=== PATIENT | female | born 1955 | race Caucasian/White ===

== ENCOUNTER 2022-01-29 12:01 | Outpatient (REF) | payer OTHER, SELFPAY ==
[2022-01-29 13:35] LABS: MANUAL DIFF FLAG NO
[2022-01-29 13:38] LABS: Basophils Absolute Auto 0.1 X10*3/uL (0.0-0.2); Basophils Percent Auto 0.8 % (0-2); Eosinophils Absolute Auto 0.1 X10*3/uL (0.0-0.4); Hematocrit 46.2 % (37.0-47.0); Imm Gran Abs Auto 0.02 X10*3/uL (0.00-0.03); Imm Gran Pct Auto 0.3 % (0.0-0.4); Lymphocytes Percent Auto 27.1 % (20-40); Mean Corpuscular HGB Conc 32.5 g/dl (31.0-35.0); Mean Corpuscular Hemoglobin 28.5 pg (27.0-33.0); Mean Corpuscular Volume 87.8 fL (80.0-98.0); Mean Platelet Volume 11.8 fL (9.4-12.3); Monocytes Absolute Auto 0.5 X10*3/uL (0.1-1.2); Monocytes Percent Auto 6.9 % (2-11); Neutrophils Absolute Auto 4.6 x10*3/uL (2.0-8.3); Neutrophils Percent Auto 63.9 % (45-73); Platelet Count 272 X10*3/uL (160-400); Red Blood Count 5.26 X10*6/uL (4.20-5.50); Red Cell Distribution Width 14.6 % (11.0-16.0); White Blood Count 7.2 X10*3/uL (4.8-10.8)
[2022-01-29 13:50] LABS: Alanine Aminotransferase 14 U/L (0-31); Albumin Level 4.5 g/dL (3.5-5.0); Alkaline Phosphatase 68 U/L (39-117); Anion Gap 12 (12-20); Aspartate Amino Transferase 19 U/L (5-31); Bilirubin Total 0.5 mg/dL (0.0-1.0); Blood Urea Nitrogen 16 mg/dL (9-16); Calcium 8.6 mg/dL (8.4-10.2); Carbon Dioxide 26 mmol/L (22-29); Chloride 104 mmol/L (96-108); Cholesterol 169 mg/dL; Estimated Glomerular Filt Rate 50; Glucose Random 101 mg/dL (60-115); HDL Cholesterol 54 mg/dL; LDL Cholesterol Calculated 97 mg/dl; Potassium 4.9 mmol/L (3.3-5.1); Sodium 137 mmol/L (135-145); Total Protein 6.8 g/dL (6.5-8.0); Triglycerides 91 mg/dL
[2022-01-29 14:06] LABS: Free T4 (Free Thyroxine) 1.19 ng/dL (0.71-1.85); Thyroid Stimulating Hormone 1.95 uIU/mL (0.32-4.0); Vitamin D 25-OH Total 34.1 ng/mL (>30)
== END 2022-01-29 12:02 | disposition home or self-care (01) ==
LOC: HO.10HDL 12:01
PROVIDERS: Visit Provider Internal Medicine
DX: I10 Essential (primary) hypertension (principal); E78.00 Pure hypercholesterolemia, unspecified; E03.9 Hypothyroidism, unspecified; E55.9 Vitamin D deficiency, unspecified
CPT/HCPCS: 36415; 80053; 80061; 82306; 84439; 84443; 85025

== ENCOUNTER 2022-06-18 10:01 | Outpatient (REF) | payer OTHER, SELFPAY ==
[2022-06-18 12:26] LABS: Anion Gap 15 (12-20); Blood Urea Nitrogen 15 mg/dL (9-16); Calcium 9.3 mg/dL (8.4-10.2); Carbon Dioxide 27 mmol/L (22-29); Chloride 102 mmol/L (96-108); Estimated Glomerular Filt Rate 58; Glucose Random 97 mg/dL (60-115); Potassium 4.8 mmol/L (3.3-5.1); Sodium 139 mmol/L (135-145)
[2022-06-18 12:49] LABS: Free T4 (Free Thyroxine) 1.16 ng/dL (0.71-1.85)
== END 2022-06-18 10:02 | disposition home or self-care (01) ==
LOC: HO.10HDL 10:01
PROVIDERS: Visit Provider Internal Medicine
DX: I10 Essential (primary) hypertension (principal); E03.9 Hypothyroidism, unspecified
CPT/HCPCS: 36415; 80048; 84439; 84443

== ENCOUNTER 2023-01-21 08:36 | Outpatient (REF) | payer OTHER, SELFPAY ==
[2023-01-21 11:37] LABS: Anion Gap 14 (12-20); Blood Urea Nitrogen 13 mg/dL (9-16); Calcium 9.5 mg/dL (8.4-10.2); Carbon Dioxide 23 mmol/L (22-29); Chloride 107 mmol/L (96-108); Estimated Glomerular Filt Rate 58; Glucose Random 117 mg/dL (60-115); Potassium 4.3 mmol/L (3.3-5.1); Sodium 140 mmol/L (135-145)
[2023-01-21 11:46] LABS: Free T4 (Free Thyroxine) 1.09 ng/dL (0.71-1.85); Thyroid Stimulating Hormone 2.36 uIU/mL (0.32-4.0)
== END 2023-01-21 08:37 | disposition home or self-care (01) ==
LOC: HO.10HDL 08:36
PROVIDERS: Visit Provider Internal Medicine
DX: I12.9 Hypertensive chronic kidney disease with stage 1 through stage 4 chronic kidney disease, or unspecified chronic kidney disease (principal); N18.9 Chronic kidney disease, unspecified; E03.9 Hypothyroidism, unspecified
CPT/HCPCS: 36415; 80048; 84439; 84443

== ENCOUNTER 2023-03-26 06:31 | Outpatient (REF) | payer OTHER, SELFPAY ==
[2023-03-26 12:05] LABS: Anion Gap 10 (12-20); Blood Urea Nitrogen 19 mg/dL (9-16); Calcium 9.6 mg/dL (8.4-10.2); Carbon Dioxide 28 mmol/L (22-29); Chloride 105 mmol/L (96-108); Cholesterol 157 mg/dL (<200); Estimated Glomerular Filt Rate 57; Glucose Random 109 mg/dL (60-115); HDL Cholesterol 47 mg/dL (>40); LDL Cholesterol Calculated 80 mg/dL (<100); Potassium 4.3 mmol/L (3.3-5.1); Sodium 139 mmol/L (135-145); Triglycerides 154 mg/dL (<150)
== END 2023-03-26 06:32 | disposition home or self-care (01) ==
LOC: HO.HMGCLDS 06:31
PROVIDERS: PCP Internal Medicine; Visit Provider Internal Medicine
DX: I10 Essential (primary) hypertension (principal); E78.00 Pure hypercholesterolemia, unspecified
CPT/HCPCS: 36415; 80048; 80061

== ENCOUNTER 2024-06-11 10:14 | Outpatient (REF) | payer OTHER, SELFPAY ==
--- NOTE | ~2024-06-11 | XR_ITS ---
EXAMINATION: XR KNEE, LEFT CLINICAL INFORMATION: M25.562 - Pain in left knee. COMPARISON: None available. TECHNIQUE: 3 views of the left knee. FINDINGS: Prominent chondrocalcinosis. Medial Compartment: There are marginal osteophytes and subtle concavity in the weightbearing portion of the medial femoral condyle. This concavity likely reflects an area of prior insufficiency fracture or spontaneous osteonecrosis of the knee. Concomitant wzrw-vi-swoggkua osteoarthritis. Lateral Compartment: Marginal osteophytes indicative of mild osteoarthritis. Patellofemoral Compartment: Marginal osteophytes, subchondral cystic change, and nonuniform joint space narrowing indicative of ekuo-bp-tckaoxgr osteoarthritis. No effusion. XR/XR knee LT 3V IMPRESSION: Prominent chondrocalcinosis. Osteoarthritis. Probable old insufficiency fracture/spontaneous osteonecrosis of the knee involving the medial compartment. Electronically signed by: Brady Ford MD 06/17/2024 07:29 AM TALYA
== END 2024-06-11 10:15 | disposition home or self-care (01) ==
LOC: HO.HOSX 10:14
PROVIDERS: Visit Provider Orthopaedic Surgery
DX: M25.562 Pain in left knee (principal); M17.12 Unilateral primary osteoarthritis, left knee
CPT/HCPCS: 20610; 73562; J1010; J2003

== ENCOUNTER 2024-06-11 13:58 | Outpatient (AMB) | payer OTHER, SELFPAY ==
--- NOTE | 2024-06-11 14:30 | A.OFFVIS_ITS ---
Vital Signs 06/11/24 14:32 Height 5 ft 4 in Weight 230 lb BMI 39.5 Intake Visit Reasons: Left knee pain Intake Note: Zuleyma is a 69 year old female who presents with complaints of progressively worsening left knee pain. She describes her pain as sharp in nature. Her pain began several months ago. She does not recall any specific traumatic event preceding the onset of her pain. She has tried Tylenol and anti-inflammatory medicines which gave her minimal relief. She has also done physical therapy exercises which aggravated her pain. 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 Exam Vital Signs: BMI result Body Mass Index 39.5 Const Other: Well-nourished well-developed very friendly female awake alert and oriented x3 in no acute distress Extrem Other: Bilateral lower extremity examination shows good capillary refill, no skin lesions noted, normal sensation light touch Left knee examination shows a minimal effusion, palpable crepitus with range of motion, pain with range of motion, range of motion from -3 degrees to 115 degrees, no instability Office Procedures AMB Joint Injection/Aspiration Joint Injection/Aspiration Primary Site: left knee Prep: site was prepped using aseptic technique Injected: 40 mg of, DepoMedrol and 1% plain lidocaine Procedure: The patient tolerated the procedure well Coding 27624 - Large joint Procedure code (CPT) selection complete Results Reviewed Results Reviewed: X-rays of the patient's left knee show moderate joint space narrowing, no acute bony abnormalities Assessment & Plan Assessment & Plan (1) Osteoarthritis of left knee: Code(s): M17.12 - Unilateral primary osteoarthritis, left knee Category: Medical (2) Left knee pain: Code(s): M25.562 - Pain in left knee Category: Medical Plan Ms. Wheatley presents with left knee pain due to osteoarthritis. I had a lengthy discussion with the patient regarding the treatment options. The risks and benefits of a left knee cortisone injection were discussed at length with the patient. The patient wished to proceed. She tolerated the injection well. She will continue with her home exercise program. She will contact me prior to her follow-up appointment in 3 months should any questions or concerns arise. Feel free to call me at any time should questions regarding her orthopedic management arise. Thank you very much for asking me to see this very friendly patient. I spent 21 minutes in reviewing the patient's records and imaging studies, seeing the patient and documenting in the medical record. Orders: Orders AMB Joint Injection/Aspiration 06/11/24 M17.12 - Unilateral primary osteoarthritis, left knee XR knee LT 3V 06/11/24 M25.562 - Pain in left knee Coding Level of Care Code New Pt Level 3 (40698) Complex EM visit Add On G2211 Diagnoses Osteoarthritis of left knee M17.12 Left knee pain M25.562 CPT Codes Coding - 53308 Large joint: 40428 - Large joint ([id number])
[2024-06-11 14:32] VITALS: BMI 39.5
== END 2024-06-11 15:13 | disposition home or self-care (01) ==
PROVIDERS: PCP Internal Medicine; Visit Provider Orthopaedic Surgery
DX: M17.12 Unilateral primary osteoarthritis, left knee (principal)
CPT/HCPCS: 20610; 99203

== ENCOUNTER 2025-01-16 08:43 | Outpatient (AMB) | payer OTHER, SELFPAY ==
--- NOTE | 2025-01-16 08:43 | A.OFFPC_ITS ---
Vital Signs 01/16/25 08:46 01/16/25 08:49 01/16/25 08:52 01/16/25 09:23 Height 5 ft 4 in Weight 100.698 kg BP 142/78 H 132/82 Blood Pressure Location Rt brachial Position Sitting Pulse 61 Pulse Source Pulse Oximeter Temp 98.3 F Temp Source Temporal Artery Scan Pulse Oximetry (%) 98 Oxygen Delivery Method Room Air Intake Visit Reasons: review medications - see comments Child Care Teacher Required: No Accompanied by: Self / Same As Patient Allergies No Known Allergies Allergy (Verified 01/16/25 08:43) Medication List - Last Reconciled 01/16/25 by KELLI Kenyon aspirin 81 mg PO DAILY atorvastatin 20 mg PO DAILY cholecalciferol (vitamin D3) 25 mcg PO DAILY fexofenadine (Karlee Allergy) 60 mg PO ONCE hydrochlorothiazide 12.5 mg PO DAILY levothyroxine 88 mcg PO DAILY lisinopril 30 mg PO DAILY montelukast 10 mg PO DAILY omeprazole 40 mg PO DAILY HPI HPI Comments History of Present Illness Details 69-year-old female with history of hyper tension, hypothyroidism, hyperlipidemia, GERD, asthma, obesity class 2 and CKD stage 3 presents to the office today for management of chronic conditions and to establish care. Hypertension-compliant with hydrochlorothiazide 12.5 mg and lisinopril 30 mg daily. Initial bp 142/78 Hyperlipidemia-compliant with atorvastatin 20 mg daily Hypothyroidism-on levothyroxine 88 mcg daily Asthma-mild intermittent, controlled with Singulair Osteoarthritis left knee-following with Dr. Molina for cortisone injections Obesity-BMI 38.1. Limited exercise due to OA L knee. 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 She is interested in Zepbound/tirzepatide. No history of FRED or diabetes Concerns: Weight as above Health maintenance: Last mammogram Last DEXA scan Last colonoscopy ROS: General: No fevers, malaise, unintentional weight loss HEENT: No blurred vision, diplopia. No sore throat, nasal congestion, rhinorrhea, sinus pain, ear pain Cardiovascular: No chest pain, palpitations, or leg edema Respiratory: No shortness of breath, wheezing, cough GI: No abdominal pain, nausea, vomiting, diarrhea, constipation, melena, hematochezia : No dysuria, hematuria, increased urinary frequency, decreased urinary output MSK: No myalgia, back pain. See HPI Neuro: No headaches, weakness, paresthesias Skin: No rashes or lesions EXAM: Constitutional - Awake and Alert, No apparent distress Eyes - PERRL Cardiovascular - S1S2, RRR, No edema Respiratory - Normal lung expansion, Normal respiratory effort, No respiratory distress, CTA bilaterally Extremities - no calf tenderness bilaterally, no swelling Skin - Warm/Dry Neurological - Alert & oriented x3 Psychological - Appropriate affect [facility] Medical History (Updated 01/16/25 @ 08:54 by KELLI Kenyon) Obesity Asthma Hypothyroidism Hypertension CKD (chronic kidney disease) Hyperlipidemia Social History (Updated 06/11/24 @ 14:34 by JYOTI Freeman) Alcohol intake: never Patient Tobacco Use Status: Never used Tobacco Current occupational status: employed 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 1. Little interest or pleasure in doing things: several days 2. Feeling down, depressed, or hopeless: not at all 3. Trouble falling or staying asleep, or sleeping too much: not at all 4. Feeling tired or having little energy: several days 5. Poor appetite or overeating: several days 6. Feeling bad about yourself - or that you are a failure or have let yourself or your family down: nearly every day 7. Trouble concentrating on things, such as reading the newspaper or watching television: not at all 8. Moving or speaking so slowly that other people could have noticed. Or the opposite - being so fidgety or restless that you have been moving around a lot more than usual: several days 9. Thoughts that you would be better off or of hurting yourself in some way: not at all Total score: 7 Source: Developed by Drs. Mitul Martell, Saadia Patel, Diallo Blandon and colleagues, with an educational linda from [employer]. Thrive Questionnaire Date Thrive assessed: 01/16/25 I am a: Patient What is your living situation today?: I have a steady place to live Within the past 12 months, did the food you bought not last and you didn't have the money to get more?: Never true Within the past 12 months, did you worry whether your food would run out before you got money to buy more?: Never true Do you have trouble paying for medicines?: No Do you have trouble getting transportation to medical appointments?: No Do you have trouble paying your heating and electricity bill?: No Do you have trouble taking care of your child, family member or friend?: No Do you have trouble with day-to-day activities such as bathing, preparing meals, shopping, managing finances, etc.?: No Are you currently unemployed and looking for a job?: No Are you interested in more education?: No THRIVE Score: 0 MATTEO-7 AMB Questionnaire MATTEO-7 Date MATTEO - 7 assessed: 01/16/25 Feeling nervous, anxious, or on edge: 0 = Not at all Not being able to stop or control worryin = Not at all Worrying too much about different things: 0 = Not at all Trouble relaxin = Not at all Being so restless that it is hard to sit still: 0 = Not at all Becoming easily annoyed or irritable: 0 = Not at all Feeling afraid as if something awful might happen: 0 = Not at all Total MATTEO-7 score (0-4 normal; 5-9 mild; 10-14 moderate; 15-21 severe): 0 Source: Developed by Drs. Mitul Martell, Saadia Patel, Diallo Blandon and colleagues, with an educational linda from [employer]. Physical exam (Primary Care) Vital Signs: Last Vital Signs Temp 98.3 F 01/16/25 08:52 Pulse 61 01/16/25 08:52 BP 142/78 H 01/16/25 08:52 Pulse Ox 98 01/16/25 08:52 Oxygen Delivery Method Room Air 01/16/25 08:52 Tobacco/Smoking Status: Tobacco use Status Patient Tobacco Use Status Never used Tobacco 01/16/25 08:46 Coding Level of Care Code New Pt Level 4 (43346) Complex EM visit Add On G2211 Diagnoses Hypertension I10 Hypothyroidism E03.9 CKD stage 3a, GFR 45-59 ml/min N18.31 Hyperlipidemia E78.5 Asthma J45.909 Obesity E66.9 Assessment & Plan Assessment & Plan (1) Hypertension: Code(s): I10 - Essential (primary) hypertension Category: Medical Plan: Controlled on recheck. Continue hydrochlorothiazide and lisinopril. Check renal function and electrolyte levels (2) Hypothyroidism: Code(s): E03.9 - Hypothyroidism, unspecified Category: Medical Plan: TSH with reflex free T4 ordered. Continue levothyroxine, dose to be adjusted pending results of study (3) CKD stage 3a, GFR 45-59 ml/min: Code(s): N18.31 - Chronic kidney disease, stage 3a Category: Medical Plan: Basic metabolic profile ordered (4) Hyperlipidemia: Code(s): E78.5 - Hyperlipidemia, unspecified Category: Medical Plan: Lipid panel ordered. Continue atorvastatin, dose to be adjusted as needed pending results (5) Asthma: Code(s): J45.909 - Unspecified asthma, uncomplicated Category: Medical Plan: Stable. Continue Singulair, albuterol p.r.n. (6) Obesity: Code(s): E66.9 - Obesity, unspecified Category: Medical Plan: Weight loss efforts encouraged including with calorie deficit and emphasis on protein, vegetables, fruits and reducing intake of refined sugars, highly processed foods, and simple carbohydrates. Recommend increased exercise Plan Follow-up in 6 months with labs completed prior to visit Referred for screening mammogram, DEXA scan, Cologuard Orders: Orders Liver Panel Today E03.9 - Hypothyroidism, unspecified, E66.9 - Obesity, unspecified, E78.5 - Hyperlipidemia, unspecified, I10 - Essential (primary) hypertension, N18.31 - Chronic kidney disease, stage 3a TSH reflex Free T4 Today E03.9 - Hypothyroidism, unspecified, E66.9 - Obesity, unspecified, E78.5 - Hyperlipidemia, unspecified, I10 - Essential (primary) hypertension, N18.31 - Chronic kidney disease, stage 3a Vitamin D 25-OH Total Today E56.9 - Vitamin deficiency, unspecified Basic Metabolic Panel Today E03.9 - Hypothyroidism, unspecified, E66.9 - Obesity, unspecified, E78.5 - Hyperlipidemia, unspecified, I10 - Essential (primary) hypertension, N18.31 - Chronic kidney disease, stage 3a Hemoglobin A1c Today E03.9 - Hypothyroidism, unspecified, E66.9 - Obesity, unspecified, E78.5 - Hyperlipidemia, unspecified, I10 - Essential (primary) hypertension, N18.31 - Chronic kidney disease, stage 3a Complete Blood Count Auto Diff Today E03.9 - Hypothyroidism, unspecified, E66.9 - Obesity, unspecified, E78.5 - Hyperlipidemia, unspecified, I10 - Essential (primary) hypertension, N18.31 - Chronic kidney disease, stage 3a Lipid Panel Today E03.9 - Hypothyroidism, unspecified, E66.9 - Obesity, unspecified, E78.5 - Hyperlipidemia, unspecified, I10 - Essential (primary) hypertension, N18.31 - Chronic kidney disease, stage 3a XR DEXA axial skeleton Today M89.8X9 - Other specified disorders of bone, unspecified site, N95.9 - Unspecified menopausal and perimenopausal disorder MM tomosynthesis screening BI Today Z12.31 - Encounter for screening mammogram for malignant neoplasm of breast Referrals Cologuard Test Z12.11 - Encounter for screening for malignant neoplasm of colon, Z12.12 - Encounter for screening for malignant neoplasm of rectum
--- OUTSIDE RECORDS SUMMARY | 2025-01-16 08:49 | XMS_ITS | Patient Health Record ---
Author Organization [facility] Address [address] [place], [place] [address] Care Team Providers Care Hall Manager Name Role Phone Yoel Donohue MD Primary Care Provider Danika Stallworth Unavailable [phone] Allergies Allergen (clinical drug ingredient) Drug/Non Drug Allergy documented on EMR Reaction Allergy Type Onset Date Status Adhesive Unknown Allergy Active Reason For Referral No Information Medications Medication SIG (Take, Route, Frequency, Duration) Notes Start Date End Date Status Pravastatin Sodium 40 MG 1 tablet Orally Once a day; Duration: 30 day(s) Not-Taking Naproxen 500 MG 1 tablet as needed Orally every 12 hrs Not-Taking Lisinopril 20 MG 1 tablet Orally Once a day Active Montelukast Sodium 10 MG 1 tablet in the evening Orally Once a day; Duration: 30 day(s) Active Levothyroxine Sodium 88 MCG 1 tablet on an empty stomach in the morning Orally Once a day; Duration: 30 day(s) Active Atorvastatin Calcium 20 MG 1 tablet Oral ly Once a day; Duration: 30 day(s) Active Problems Problem Type SNOMED Code ICD Code Onset Dates Problem Status W/U Status Risk Notes Problem Verruca plantaris (71431634) Verruca Plantaris (078.19) Active confirmed Problem Onychomycosis (050953259) Onychomycosis (110.1) Active confirmed Problem Pain in limb (51845247) Pain in Limb (729.5) Active confirmed Problem Ganglion cyst (06785459) Ganglion Cyst (727.43) Active confirmed Problem Ingrowing nail (608824686) Ingrowing Nail (703.0) Active confirmed Problem Exostosis (37046765) Exostosis (726.91) Active confirmed Plan Of Treatment Pending Test Test Name Order Date 97813-Wpnd Destruction, 07-3106/20/2013 16957-Zhny Destruction, 07-3108/02/2013 48429-Nnqx Destruction, 07-3109/17/2013 43867-Aizc Destruction, 07-3110/17/2013 17422-Hgne Destruction, 07-3112/13/2013 67096-Ywxj Destruction, 07-3101/30/2014 49261-Dyuqkizq Plate 01/30/2014 15772-Gxjpdfns Plate 12/13/2013 97127-Trjcwkas Plate 10/17/2013 29895-Vykqcfvp Plate 09/17/2013 62833-Pasaruqb Plate 08/02/2013 43445-Pctcqlex Plate 06/20/2013 Insurance Providers Payer Name Payer Address Payer Phone Subscriber Number Group Number Insured Name Patient Relationship to Insured Coverage Start Date Coverage End Date [facility] [address] [place] [address] [id number] Zuleyma Wheatley Self - patient is the insured Medical (General) History Medical History History ICD Code Arthritis hypercholesterolemia thyroid disorder measles mumps chicken pox CAD (Cholesterol) High blood pressure Surgical History Surgery Date(Month/Year) cyst removal 2009 carpal tunnel surgery 01/27/2022
--- OUTSIDE RECORDS SUMMARY | 2025-01-16 08:49 | XMS_ITS | Patient Health Record ---
Author Organization [facility] Address [address] [place] [address] Care Team Providers Care Program Manager Rn Name Role Phone Yoel Donohue MD Primary Care Provider Mitul Tolentino Unavailable [phone] Reason For Referral No Information Plan Of Treatment No Information Insurance Providers Payer Name Payer Address Payer Phone Subscriber Number Group Number Insured Name Patient Relationship to Insured Coverage Start Date Coverage End Date [facility] [address] [place] [phone] [id number] LESVIA SERRANO Self - patient is the insured
[2025-01-16 08:52] VITALS: BP 142/78; PULSE 61; TEMP 36.8; O2SAT 98
[2025-01-16 09:23] VITALS: BP 132/82
== END 2025-01-16 09:17 | disposition home or self-care (01) ==
PROVIDERS: PCP Physician Assistant; Visit Provider Physician Assistant
DX: I10 Essential (primary) hypertension (principal); E03.9 Hypothyroidism, unspecified; N18.31 Chronic kidney disease, stage 3a; E78.5 Hyperlipidemia, unspecified; J45.909 Unspecified asthma, uncomplicated; E66.9 Obesity, unspecified

== ENCOUNTER 2025-01-25 06:28 | Outpatient (REF) | payer OTHER, SELFPAY ==
--- OUTSIDE RECORDS SUMMARY | 2025-01-25 06:30 | XMS_ITS | Patient Health Record ---
Author Organization [facility] Address [address] [place] [address] Care Team Providers Care Technology Applications Engineer Name Role Phone Yoel Donohue MD Primary Care Provider Mitul Tolentino Unavailable [phone] Reason For Referral No Information Plan Of Treatment No Information Insurance Providers Payer Name Payer Address Payer Phone Subscriber Number Group Number Insured Name Patient Relationship to Insured Coverage Start Date Coverage End Date [facility] [address] [place] [phone] [id number] LESVIA SERRANO Self - patient is the insured
[2025-01-25 10:28] LABS: MANUAL DIFF FLAG NO
[2025-01-25 10:47] LABS: Hematocrit 46.4 % (37.0-47.0); Hemoglobin 15.2 g/dl (12.0-16.0); Imm Gran Abs Auto 0.02 X10*3/uL (0.00-0.03); Imm Gran Pct Auto 0.3 % (0.0-0.4); Lymphocytes Absolute Auto 1.9 X10*3/uL (1.2-4.9); Mean Corpuscular HGB Conc 32.8 g/dl (31.0-35.0); Mean Corpuscular Hemoglobin 27.9 pg (27.0-33.0); Mean Corpuscular Volume 85.1 fL (80.0-98.0); NRBC Abs Auto 0.000 X10*3/uL (0.0-0.012); NRBC Pct Auto 0.0 /100WBC (0.0-0.2); Platelet Count 258 X10*3/uL (160-400); Red Blood Count 5.45 X10*6/uL (4.20-5.50); White Blood Count 6.6 X10*3/uL (4.8-10.8)
[2025-01-25 10:53] LABS: Hemoglobin A1C 159.5588 umol/L; Total Hemoglobin (HGBA1C) 3969.2528 umol/L
[2025-01-25 11:21] LABS: Alanine Aminotransferase 19 U/L (0-31); Albumin Level 4.4 g/dL (3.5-5.0); Alkaline Phosphatase 76 U/L (39-117); Anion Gap 12 (12-20); Aspartate Amino Transferase 33 U/L (5-31); Blood Urea Nitrogen 14 mg/dL (9-16); Calcium 9.2 mg/dL (8.4-10.2); Carbon Dioxide 26 mmol/L (22-29); Chloride 106 mmol/L (96-108); Cholesterol 163 mg/dL (<200); Estimated Glomerular Filt Rate 55; HDL Cholesterol 51 mg/dL (>40); Potassium 4.0 mmol/L (3.3-5.1); Sodium 140 mmol/L (135-145); Total Protein 6.6 g/dL (6.5-8.0); Triglycerides 123 mg/dL (<150)
== END 2025-01-25 06:29 | disposition home or self-care (01) ==
LOC: HO.HMGCLDS 06:28
PROVIDERS: PCP Physician Assistant; Visit Provider Physician Assistant
DX: N18.31 Chronic kidney disease, stage 3a (principal); E78.5 Hyperlipidemia, unspecified; E03.9 Hypothyroidism, unspecified; E66.9 Obesity, unspecified; E56.9 Vitamin deficiency, unspecified; I10 Essential (primary) hypertension; Z13.1 Encounter for screening for diabetes mellitus
CPT/HCPCS: 36415; 80048; 80061; 80076; 82306; 83036; 84443; 85025